=== PATIENT | male | born 1975 | race African-American/Black ===

== ENCOUNTER 2023-02-17 18:55 | Emergency (ER) | payer MEDICAID ==
[2023-02-17] MEDS ORDERED: PRAZOSIN 1 MG CAPSULE PO STA (19:03)
[2023-02-17] MEDS ORDERED: hydrOXYzine PAMOATE 25 MG CAPSULE PO STA (19:03)
[2023-02-17] MEDS ORDERED: OLANZapine ODT 5 MG TABLET TL STA (19:03)
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
[2023-02-17 19:27] VITALS: BP 176/105
[2023-02-17 19:36] VITALS: O2SAT 95
== END 2023-02-17 19:30 | disposition home or self-care (01) ==
LOC: ED 18:55
DX: F41.9 Anxiety disorder, unspecified (principal); F17.200 Nicotine dependence, unspecified, uncomplicated; Z59.00 Homelessness unspecified
CPT/HCPCS: 99283; 99284; A9270